=== PATIENT | female | born 1950 | race Caucasian/White ===

== ENCOUNTER 2017-07-17 13:31 | Emergency (ER) | payer MEDICARE ==
[~2017-07-17] VITALS: Ht 167.6 cm; Wt 67.0 kg
[~2017-07-17 13:31] MED LIST: AMOX500T2 PO; OXYC-360 PO; Z.0.NO CURRENT MEDS
[2017-07-17 13:33] VITALS: BP 190/104; PULSE 86; RESP 20; TEMP 98.3; O2SAT 99
[2017-07-17 13:40] VITALS: BP 187/96; PULSE 72; RESP 18; O2SAT 99
[2017-07-17] MEDS ORDERED: SIMV20TA PO (13:45)
[2017-07-17] MEDS ORDERED: LATA0.002 EACH EYE (13:45)
[2017-07-17] MEDS ORDERED: SODIUM CHLORID 0.9% 500 ML INJ 500 ML IV ONE (14:00)
[2017-07-17] MEDS ORDERED: SODIUM CHLORIDE 0.9% FLUSH 10 ML FLUSH IVF PRN (14:00)
[2017-07-17] MEDS ORDERED: NITROGLYCERIN 0.4 MG SL 25 TABS/BTL SL ONE (14:00)
[2017-07-17] MEDS ORDERED: ASPIRIN 81 MG CHEW TAB PO ONE (14:00)
[2017-07-17 14:08] VITALS: O2SAT 99
[2017-07-17 14:26] LABS: AUTOMATED NEUTROPHIL # 3.4 TH/MM3 (1.8-7.7); BASOPHIL % 0.6 % (0.0-2.0); EOSINOPHIL # 0.1 TH/MM3 (0-0.4); EOSINOPHIL % 2.2 % (0.0-4.0); HEMATOCRIT 37.9 % (35.0-46.0); HEMO FLAGS DIFF FINAL; LYMPH % 31.5 % (9.0-44.0); LYMPHOCYTE # 1.8 TH/MM3 (1.0-4.8); MEAN CELL VOLUME 90.6 FL (80.0-100.0); MEAN CORPUSCULAR HEMOGLOBIN 30.1 PG (27.0-34.0); MEAN CORPUSCULAR HGB CONC 33.2 % (32.0-36.0); MONO % 5.5 % (0.0-8.0); NEUT % 60.2 % (16.0-70.0); PLATELET COUNT 254 TH/MM3 (150-450); RED BLOOD COUNT 4.19 MIL/MM3 (4.00-5.30); RED CELL DISTRIBUTION WIDTH 14.5 % (11.6-17.2); WHITE BLOOD COUNT 5.6 TH/MM3 (4.0-11.0)
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
[2017-07-17 14:45] LABS: ALT (GPT) 28 U/L (10-53); ANION GAP 8 MEQ/L (5-15); AST (GOT) 18 U/L (15-37); BICARBONATE 25.4 MEQ/L (21.0-32.0); BLOOD UREA NITROGEN 11 MG/DL (7-18); CHLORIDE 107 MEQ/L (98-107); GLOMERULAR FILTRATION RATE 66 ML/MIN (>89); MAGNESIUM 2.2 MG/DL (1.5-2.5); POTASSIUM 3.9 MEQ/L (3.5-5.1); SODIUM (NA) 140 MEQ/L (136-145)
[2017-07-17 14:48] LABS: ALKALINE PHOSPHATASE 108 U/L (45-117); TOTAL BILIRUBIN ADULT 0.3 MG/DL (0.2-1.0)
[2017-07-17 15:19] VITALS: BP 136/76; PULSE 78; RESP 18; O2SAT 99
[2017-07-17] MEDS ORDERED: RANI150T PO (15:28)
--- NOTE | 2017-07-17 16:23 | RADRPT ---
EXAM DATE/TIME: 07/17/2017 14:04 [facility] COMPARISON: No previous studies available for comparison. INDICATIONS : Chest pain. Patient complains of chest discomfort. MEDICAL HISTORY : None. SURGICAL HISTORY : None. ENCOUNTER: Initial ACUITY: 2 days PAIN SCORE: 0/10 LOCATION: Bilateral chest FINDINGS: A single view of the chest demonstrates the lungs to be symmetrically aerated without evidence of mas s, infiltrate or effusion. The cardiomediastinal contours are unremarkable. Osseous structures are intact. CONCLUSION: No acute disease. Heladio Hedrick MD on July 17, 2017 at 16:21 Board Certified Radiologist. This report was verified electronically.
--- NOTE | 2017-07-18 12:56 | EKG ---
Date Performed: 07/17/2017 Time Performed: 13:42:44 PTAGE: 66 years EKG: Sinus rhythm BORDERLINE LEFT AXIS DEVIATION BORDERLINE ECG NO PREVIOUS TRACING DOCTOR: Constantino Baker Interpretating Date/Time 07/18/2017 12:50:11
== END 2017-07-17 15:49 | disposition home or self-care (01) ==
LOC: NEPC 13:31
DX: R07.9 Chest pain, unspecified (principal); R06.02 Shortness of breath; R09.81 Nasal congestion; H40.9 Unspecified glaucoma; E78.5 Hyperlipidemia, unspecified; Z88.5 Allergy status to narcotic agent; Z79.899 Other long term (current) drug therapy
CPT/HCPCS: 71010; 80053; 83690; 83735; 84484; 85025; 93005; 96360; 99285; J7040